=== PATIENT | female | born 1940 | race Caucasian/White ===

== ENCOUNTER 2016-09-28 11:14 | Observation (INO) | payer OTHER ==
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
[2016-09-28] MEDS ORDERED: IOPAMIDOL (ISOVUE-300) 100 ML BTL IV ONE (11:23)
[2016-09-28 11:34] LABS: ABSOLUTE IMMATURE GRANULOCYTES 0.13 10^3/uL (0.00-0.10); ADD DIFF? NO; ADD MORPH? NO; ADD SCAN? NO; ATYPICAL LYMPHOCYTE FLAG 10 (0-99); FRAGMENT RBC FLAG 0 (0-99); HEMATOCRIT 40.4 % (38.0-47.0); HEMOGLOBIN 13.1 g/dL (12.6-16.3); LEFT SHIFT FLG 20 (0-99); LIPEMIA HEMOLYSIS FLAG 80 (0-99); MEAN CELL HEMOGLOBIN 29.4 pg (27.9-34.1); MEAN CELL HEMOGLOBIN CONCENTR. 32.4 g/dL (32.4-36.7); MEAN CELL VOLUME 90.8 fL (81.5-99.8); MEAN PLATELET VOLUME 9.6 fL (8.7-11.7); PLATELET CLUMPS FLAG 10 (0-99); PLATELET COUNT 258 10^3/uL (150-400); RED BLOOD CELL COUNT 4.45 10^6/uL (4.18-5.33); RED CELL DISTRIBUTION WIDTH 13.2 % (11.5-15.2)
[2016-09-28 11:44] LABS: INR 1.03 (0.83-1.16); PROTIME(PATIENT) 13.4 SEC (12.0-15.0)
[2016-09-28 11:45] LABS: APTT 28.2 SEC (23.0-38.0)
[2016-09-28] MEDS ORDERED: LORazepam 2 MG/ML INJ IVP ONE (12:11)
[2016-09-28] MEDS ORDERED: LORazepam 2 MG/ML INJ ONE (12:12)
[2016-09-28] MEDS ORDERED: HYDROCODONE/APAP 5/325 TAB PO PRN (13:36)
[2016-09-28] MEDS ORDERED: ONDANSETRON DISINTEGRATING 4 MG TAB PO PRN (13:36)
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
[2016-09-28] MEDS ORDERED: CITALOPRAM 20 MG TAB PO SCH (21:00)
[2016-09-28] MEDS: ACETAMINOPHEN 325 MG TAB PO PRN (21:01)
[2016-09-29] MEDS: ACETAMINOPHEN 325 MG TAB PO PRN ×2 (05:26→11:06)
[2016-09-29] MEDS ORDERED: LEVOTHYROXINE 50 MCG TAB PO SCH (06:00)
[2016-09-29 07:44] VITALS: RESP 16; O2SAT 95
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
[2016-09-29 11:57] VITALS: BP 110/56; PULSE 68; TEMP 98.4
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
== END 2016-09-29 15:10 | disposition home or self-care (01) ==
LOC: EDUNIT# → F3N 14:55
PROVIDERS: ADMIT Surgery; ATTEND Surgery
PROC: 0HQ0XZZ Repair Scalp Skin, External Approach (ICD-10-PCS; principal; 2016-09-28)
DX: S01.01XA Laceration without foreign body of scalp, initial encounter (principal); R07.9 Chest pain, unspecified; R10.2 Pelvic and perineal pain; M54.5 Low back pain; M25.551 Pain in right hip; R42 Dizziness and giddiness; V43.92XA Unspecified car occupant injured in collision with other type car in traffic accident, initial encounter
CPT/HCPCS: 12001; 70450; 71260; 72125; 72129; 72132; 74177; 92523; 97161; 97165; G0378; G9168; G9169; 82947-QW; 96374; G0390; J2060; Q9967

== ENCOUNTER → 2017-12-25 | Outpatient (CLI) | payer OTHER | LOC: FIMAGING 14:10 | PROVIDERS: ATTEND Physician Assistant Medical | DX: M25.531 Pain in right wrist (principal); Z87.81 Personal history of (healed) traumatic fracture ==